=== PATIENT | male | born 1950 | race Caucasian/White ===

== ENCOUNTER 2018-09-09 10:58 | Inpatient (IN) | payer OTHER ==
[~2018-09-09] VITALS: Ht 175.3 cm; Wt 86.2 kg
[2018-09-09] MEDS ORDERED: METFORMIN HCL500 MG (11:25)
[2018-09-09] MEDS ORDERED: LEVAQUIN750 MG (11:25)
[2018-09-09] MEDS ORDERED: BANOPHEN50 MG (11:25)
[2018-09-09] MEDS ORDERED: ATACAND32 MG (11:26)
--- NOTE | 2018-09-09 11:26 | NUR ---
PACIENTE REFIERE DIFICULTAD PARA CAMINAR , REFIERE PRESENTAR AMBOS PIES HINCHADO Y SE OBSERVA AMBAS NAOMI CON EDEMA ,PACIENTE REFIERE CORTA RESPIRACION AL CAMINNAR.
--- NOTE | 2018-09-09 12:33 | NUR ---
SE EDUCAA PTE SOBRE TX MEDICO SILVANO REFIERE ENTENDER. SE ADMINITRA MEDICAMENTO A PTE LO CUAL TOLERA Y SE CHRISTOPHER MUESTRAS DE LABORATORIO UTILIZANDO MEDIDAS ASEPTICAS. SE NOTIFICAN ABG Y PLACA PENDIENTE A REALIZAR. SE COLOCA H/L A PTE EL CUAL SE ENCUENTRA PATENTE RM DE EDEMA Y ENROJECIMIENTO. PTE S ECONTINUA OBSERVANDO POR CAMBIOS.
--- NOTE | 2018-09-09 16:23 | NUR ---
PT ALERTA Y ORIETNADO X3 ESFERAS SE RECIBE EN GARTH CON BARANDAS ELEVADAS Y FRENOS COLOCADOS. HEPARIN LOCK PATENTE. PENDIENTE VISITA DE INTERNISTA. PT TOLERA TX, TRANQUILO Y SIN DIFICULTAD RESPIRATORIA. SE MANTIENE BAJO OBSERVACION POR CAMBIOS EN NIKOLAS.
== END 2018-09-24 22:28 | disposition home or self-care (01) | DRG 187 ==
LOC: ER 10:58 → MEDJ 21:28
PROVIDERS: ADMIT Internal Medicine Cardiovascular Disease
PROC: 4A033R1 Measurement of Arterial Saturation, Peripheral, Percutaneous Approach (ICD-10-PCS; 2018-09-09)
PROC: BW21Y0Z Computerized Tomography (CT Scan) of Abdomen and Pelvis using Other Contrast, Unenhanced and Enhanced (ICD-10-PCS; 2018-09-09)
PROC: BW24ZZZ Computerized Tomography (CT Scan) of Chest and Abdomen (ICD-10-PCS; 2018-09-10)
PROC: 0W993ZX Drainage of Right Pleural Cavity, Percutaneous Approach, Diagnostic (ICD-10-PCS; principal; 2018-09-11)
PROC: B246ZZZ Ultrasonography of Right and Left Heart (ICD-10-PCS; 2018-09-11)
PROC: 07DR3ZX Extraction of Iliac Bone Marrow, Percutaneous Approach, Diagnostic (ICD-10-PCS; 2018-09-14)
PROC: 30233N1 Transfusion of Nonautologous Red Blood Cells into Peripheral Vein, Percutaneous Approach (ICD-10-PCS; 2018-09-14)
PROC: 8E0ZXY6 Isolation (ICD-10-PCS; 2018-09-14)
DX: J90 Pleural effusion, not elsewhere classified (principal); C90.00 Multiple myeloma not having achieved remission; N17.9 Acute kidney failure, unspecified; R60.1 Generalized edema; E11.22 Type 2 diabetes mellitus with diabetic chronic kidney disease; I12.9 Hypertensive chronic kidney disease with stage 1 through stage 4 chronic kidney disease, or unspecified chronic kidney disease; N18.2 Chronic kidney disease, stage 2 (mild); Z79.4 Long term (current) use of insulin; E03.8 Other specified hypothyroidism; E88.09 Other disorders of plasma-protein metabolism, not elsewhere classified; R59.0 Localized enlarged lymph nodes; R19.04 Left lower quadrant abdominal swelling, mass and lump; D63.8 Anemia in other chronic diseases classified elsewhere; F10.10 Alcohol abuse, uncomplicated

== ENCOUNTER 2019-05-26 20:11 | Inpatient (IN) | payer OTHER ==
[~2019-05-26] VITALS: Ht 175.3 cm; Wt 59.0 kg
[~2019-05-26 20:11] MED LIST: ATACAND32 MG; BANOPHEN50 MG; LEVAQUIN750 MG; METFORMIN HCL500 MG
--- NOTE | 2019-05-26 20:40 | NUR ---
PTE ALERTA Y ORIENTADO EN RADHA ESFERAS ACOMPANADO DE FAMILIAR. LLEGA A ABRAHAM DE EMERGENCIAS REFIERIENDO LLEVAR RADHA BLACKBURN PRESENTANDO MOLESTIA ABDOMINAL Y FALTA DE APETITO. AL MOMENTO DEL TRIAGE PRESENTA BP 77/55 MMHG Y PULSO 169 LATIDOS POR MINUTO. SE REALIZA ELECTROCARDIOGRAMA Y SE PRESENTA A DR EGAN QUIEN REFIERE UBICAR PACIENTE EN AREA DE CHEST PAIN. SE CB PACIENTE EN GARTH #18. CONECTADO A MONITOR CARDIACO Y OXIMETRIA CON ALARMAS AUDIBLES. PACIENTE EN ESPERA DE EVALUACION POR DR EGAN.
--- NOTE | 2019-05-26 21:02 | NUR ---
SE RECIBE A ABRAHAM DE EMERGENCIAS AREA DE CHESTA PAIN UNIT, PTE MASCULINO DE 67 YRS,PTE ALERTA X 3, SE ACOMODA EN GARTH CPU # 17, CON BARANDAS ELEVADAS POR GRIMALDO SEGURIDAD, SE COLOCA EN MONITOR CARDIACO Y OXIMETRIA DE PULSO, SE PROCEDE A CANALIZAR PACIENTE, DR Jung'GAINES EVALUA Y ORDENA MEDICAMENTOS Y LABORATORIOS. SE OBSEVARAN POR CAMBIOS EN GRIMALDO CONDICION DE NIKOLAS.
--- NOTE | 2019-05-26 23:00 | NUR ---
SE RECIBE PTE ALERTA Y ORIENTADO EN LAS 3 ESFERAS EN CAMA CON BARANDAS ELEVADAS POR SEGURIDAD EN COMPANIA DE FAMILIAR EN LA UNIDAD DE DOLOR DE PECHO. CONECTADO A MONITOR CARDIACO, OXIMETRIA DE PULSO Y ASISTIDO POR AURORA CANULA NASAL A 3LTS CON BUEN PATRON RESPIRATORIO. RECIBIENDO IV'S 0.9NSS BAJANDO 60ML/HR POR VENOPUNCION EN ANTEBRAZO BERNARD EL CUAL SE ENCUENTRA RM DE EDEMA Y ERITEMA. H/L EN BRAZO DERECHO, RM DE EDEMA Y ERITEMA. SE ORIENTA A PTE Y FAMILIAR SOBRE TX MEDICO. PTE Y FAMILIAR REFIEREN COMPRENDER. SE MANTIENE EN OBSERVACION POR CAMBIOS.
--- NOTE | 2019-05-27 02:55 | NUR ---
SE ADMINISTRAN MEDICAMENTOS ZAHIRA ORDEN MEDICA. SE REALIZA EKG POR ORDEN MEDICA DE LA BEEJOSE MIGUEL. SE MANTIENE EN OBSERVACION POR CAMBIOS EN CONDICION MEDICA.
--- NOTE | 2019-05-27 06:49 | NUR ---
SE RECIBE PACIENTE ALERTA Y ORIENTADAO ACOMPANNADO DE FAMILIAR CONECTADO A MONIOTR CARDIACO ,IVF PATENTE RM DE EDEMA SE MANTIENENENOBSERVACION POR CAMBIOS EN GRIMALDO CONDCION. .
== END 2019-06-01 10:06 | disposition home or self-care (01) | DRG 281 ==
LOC: ER 20:11 → ICU-2 05-27 10:57 → SURH 05-27 10:57 → ICU 05-27 13:24 → SURH 05-28 07:32
PROVIDERS: ADMIT Internal Medicine Cardiovascular Disease
PROC: B246ZZZ Ultrasonography of Right and Left Heart (ICD-10-PCS; principal; 2019-05-27)
PROC: BW40ZZZ Ultrasonography of Abdomen (ICD-10-PCS; 2019-05-27)
PROC: 4A12X4Z Monitoring of Cardiac Electrical Activity, External Approach (ICD-10-PCS; 2019-05-28)
DX: I21.4 Non-ST elevation (NSTEMI) myocardial infarction (principal); I47.1 Supraventricular tachycardia; I50.22 Chronic systolic (congestive) heart failure; C94.80 Other specified leukemias not having achieved remission; J90 Pleural effusion, not elsewhere classified; N17.8 Other acute kidney failure; I13.0 Hypertensive heart and chronic kidney disease with heart failure and stage 1 through stage 4 chronic kidney disease, or unspecified chronic kidney disease; J98.11 Atelectasis; R18.8 Other ascites; K76.1 Chronic passive congestion of liver; I08.1 Rheumatic disorders of both mitral and tricuspid valves; N18.2 Chronic kidney disease, stage 2 (mild); R16.1 Splenomegaly, not elsewhere classified; R09.02 Hypoxemia